=== PATIENT | male | born 1955 | race Two or more races ===

== ENCOUNTER 2025-10-16 09:30 | Day surgery (SDC) | payer MEDICARE, SELFPAY ==
--- NOTE | 2025-10-15 07:00 | EKG_ITS ---
[facility] Test Date: 2025-10-15 Pat Name: RABIA TAYLOR Department: Room: - Gender: Male General Operations Manager: YAHIR : 1955 Requested By: Anoop Seaman Order Number: [id number] Reading MD: Anoop Seaman Measurements Intervals [place] Rate: 53 P: 50 NE: 198 QRS: 66 QRSD: 93 T: 62 QT: 430 QTc: 407 Interpretive Statements SINUS BRADYCARDIA No previous ECG available for comparison /store/S0/[id number].pdf
[2025-10-15 09:42] VITALS: BMI 25.7
[2025-10-15 10:15] LABS: Collection Type, Urine Clean Catch; Squamous Epithelial Cell,Urine 0 /hpf (0-5); WBC,Urine 0 /hpf (0-5)
[2025-10-15 10:51] LABS: Bilirubin,Urine Negative (Negative); Blood,Urine Trace (Negative); Clarity,Urine Clear (Clear/Hazy); Glucose, Urine Trace (Negative); Ketones,Urine Negative (Negative); Leukocyte Esterase,Urine Negative (Negative); Nitrite,Urine Negative (Negative); PH,Urine 7.0 (5.0-7.0); Protein,Urine Negative (Neg - Trace); RBC,Urine 3 /hpf (0-3); Specific Gravity,Urine 1.014 (1.001-1.035); Urobilinogen,Urine Negative mg/dL (0.0-1.0)
[2025-10-15 10:53] LABS: Color,Urine Lt-Yellow (Lt Yel-Yel)
[2025-10-15 10:58] LABS: Alanine Aminotransferase 68 U/L (10-49); Albumin, Serum 4.9 gm/dL (3.4-4.8); Albumin/Globulin Ratio 2.1 (1.2-2.2); Alkaline Phosphatase 63 U/L (46-116); Anion Gap 8 (7-16); Aspartate Amino Transferase 38 U/L (0-34); BUN/Creatinine Ratio 11 Ratio (12-20); Bilirubin,Total 0.5 mg/dL (0.3-1.2); Blood Urea Nitrogen 14 mg/dL (9-23); Calcium 9.6 mg/dL (8.3-10.6); Calcium (Corrected) 9.6 mg/dL (8.5-10.1); Carbon Dioxide 24.5 mMol/L (20.0-31.0); Chloride 110 mMol/L (98-107); Creatinine (Component) 1.3 mg/dL (0.6-1.3); Estimated Creatinine Clearance 46.0 mL/min (>60); Globulin 2.3 gm/dL (2.3-3.5); Glucose 95 mg/dL (74-106); Osmolality,Calculated 283 (275-295); Potassium 4.4 mMol/L (3.4-5.1); Sodium 142 mMol/L (136-145); Total Protein 7.2 gm/dL (5.7-8.2); eGFR 59 See Note
[2025-10-15 11:05] LABS: Basophils # (Auto) 0.1 Thou/mm3 (0.0-0.2); Basophils % (Auto) 1 % (0-2.5); Eosinophils # (Auto) 0.1 Thou/mm3 (0.0-0.5); Eosinophils % (Auto) 1 % (0-10); Hematocrit 41.5 % (41.0-53.0); Hemoglobin 14.3 g/dL (13.5-16.0); Immature Granulocytes Auto 0.03 Thou/mm3 (0.00-0.00); Lymphocytes # (Auto) 1.9 Thou/mm3 (1.0-4.8); Lymphocytes % (Auto) 16 % (10-50); Mean Corpuscular HGB Conc 34.5 g/dl (31.0-37.0); Mean Corpuscular Hemoglobin 33.9 pg (25.0-35.0); Mean Corpuscular Volume 98 fL (80-100); Monocytes # (Auto) 0.9 Thou/mm3 (0.0-0.8); Monocytes % (Auto) 7 % (0-12); Neutrophils # (Auto) 8.8 Thou/mm3 (1.8-7.7); Neutrophils % (Auto) 74 % (37-80); Nucleated Red Blood Cell # 0.00 Thou/mm3 (0.00-0.00); Nucleated Red Blood Cell % 0 /100 WBC (0); Platelet Count 311 Thou/mm3 (140-440); RDW Standard Deviation 45.2 fL (35.1-43.9); Red Blood Count 4.22 Miln/mm3 (4.50-5.90); White Blood Count 11.9 Thou/mm3 (3.8-10.6)
--- NOTE | 2025-10-15 12:43 | SUR.PREOP ---
Pt stated saw [facility] 6 yrs ago, he stated had his arteries cleaned and not sure if he has a coronary stent, pt stated his primary Dr has referred him to [facility] but he has not been able to go. Pt saw [facility] last in [place] that's where he used to live.
--- NOTE | 2025-10-15 12:46 | SUR.PREOP ---
Cardiac history reviewed with Dr Erickson.
--- NOTE | 2025-10-15 13:47 | ESHP_ITS ---
RE: RABIA TAYLOR : 1955 DATE OF ADMISSION: 10/15/2025 HISTORY OF PRESENT ILLNESS: A 70 [id number] who was referred to me with history of nocturia x4. He is Mosoth[place] speaking. Fair urinary stream. No blood in the urine. No burning in the urine. Patient serum creatinine is 1.05. His PSA is 24.6. PAST SURGICAL HISTORY: None. SOCIAL HISTORY: Patient has 4 children. ALLERGIES: NONE KNOWN. PAST MEDICAL HISTORY: No history of diabetes mellitus. He has a history of hypertension. MEDICATIONS: He takes: 1. Aspirin. 2. Statin medication. 3. Losartan. 4. Coreg. 5. Zetia. PHYSICAL EXAMINATION: Clinical examination reveals: HEENT: Normal. NECK: Supple. LUNGS: Clear. HEART: Sounds are normal. ABDOMEN: Soft without any organomegaly, no guarding, no rigidity. EXTREMITIES: Normal. GENITOURINARY: Phallus is normal, testes are down in scrotum. RECTAL: Examination reveals moderately enlarged prostate with mild firmness in the right prostatic lobe. IMPRESSION: 1. Prostatism. 2. Prostatic obstruction. 3. Elevated PSA. PLAN: Cystoscopy and transrectal prostatic ultrasound with ultrasound-guided prostatic needle biopsy. Planned procedure, risks and complications have been discussed with the patient. Patient has understood them and agreed to proceed. DT: 13:23:18 TT: 13:46:00 Ref: [id number] - TID: [id number]
[2025-10-16 06:00] VITALS: BP 193/81; PULSE 57; RESP 19; TEMP 36.1; O2SAT 98; BMI 25.8
--- NOTE | 2025-10-16 11:02 | PC.NURSE ---
Dr. Erickson made aware of high BP. No new orders received.
--- NOTE | 2025-10-16 11:30 | XR_ITS ---
EXAMINATION: Transrectal prostate sonography Date and time: October 16, 2025, 1151 hours INDICATIONS: Sonographic prostate images for prostate biopsies by physician today TECHNIQUE AND FINDINGS: Transrectal prostate sonographic images. Prostate volume 31.16 cc IMPRESSION: Transrectal prostate sonography for prostate biopsies by physician today
[2025-10-16 12:44] VITALS: BP 153/57; PULSE 53; RESP 18; TEMP 36.3; O2SAT 100
--- NOTE | 2025-10-16 12:44 | SUR.PHASEII ---
1244: Pt. AAOx4, vitals stable, breathing unlabored, no complaint of pain or nausea, no dressing in place, no active bleed noted, report received from MD Erickson and Fidel DELGADO.
[2025-10-16 12:49] VITALS: BP 127/58; PULSE 52; RESP 13; TEMP 36.5; O2SAT 100
[2025-10-16 12:54] VITALS: BP 154/76; PULSE 55; RESP 14; TEMP 36.4; O2SAT 100
[2025-10-16 12:59] VITALS: BP 147/63; PULSE 65; RESP 14; TEMP 36.4; O2SAT 100
[2025-10-16 13:14] VITALS: BP 169/76; PULSE 66; RESP 16; TEMP 36.5; O2SAT 98
--- NOTE | 2025-10-16 13:20 | SUR.PHASEII ---
1320: Pt. AAOx4, vitals stable, breathing unlabored, no complaint of pain or nausea, no dressing in place, pt. able to void hematuria, pt. tolerated sips of water well, pt. ambulated to wheelchair with steady gait and no assist, no complications. Gave discharge instructions to the pt. and his ride using a manager disaster recovery, both verbalized understanding and had no further questions. Pt. left with all personal belongings.
--- NOTE | 2025-10-16 23:41 | ESOP_ITS ---
RE: RABIA TAYLOR : 1955 PREOPERATIVE DIAGNOSES: Prostatism, prostatic obstruction, elevated PSA of 24.6. POSTOPERATIVE DIAGNOSES: Prostatism, prostatic obstruction, elevated PSA of 24.6. PROCEDURES PERFORMED: Cystoscopy and transrectal prostatic ultrasound with ultrasound-guided prostatic needle biopsy. ANESTHESIA: Monitored anesthesia, by Dr. Erickson. INDICATIONS: Patient is a 70-year-old male, Irish speaking, with prostatism, elevated PSA of 24.6. He has nocturia and slowing urinary stream. Rectally, he has a moderately-sized prostate with some firmness on both prostatic lobes. Patient is now scheduled to have cystoscopy and transrectal prostatic ultrasound with ultrasound-guided prostatic needle biopsy. Planned procedure, risks, and complications have been discussed with the patient. Patient has understood them and agreed to proceed. DESCRIPTION OF PROCEDURE: After the patient was brought to the operating table under adequate monitored anesthesia in dorsal lithotomy position, parts were prepped and draped in the usual fashion. Cystoscopy was then carried out, which revealed adequate urethral meatus, normal-appearing urethra, bilobed, moderate-size prostate. Residual urine was 2 ounce, yellow and clear, and was sent for culture and sensitivity examination. There were no intravesical stones or tumors. Ureteral orifices were found to be normal in position and appearance. The scope was withdrawn. Patient was then turned in left lateral position. Transrectal prostatic ultrasound was then carried out. Biopsies were obtained from both lobes using ultrasound guidance. Patient tolerated the entire procedure well and left the room in good condition. DT: 12:47:37 TT: 23:39:00 Ref: [id number] - TID: [id number]
== END 2025-10-16 13:20 | disposition home or self-care (01) ==
PROVIDERS: Anesthesiology; PCP Internal Medicine; Referring Provider Surgery; Visit Provider Surgery
PROC: (CPT 55700; principal; 2025-10-16 11:45)
PROC: 0TJB8ZZ Inspection of Bladder, Via Natural or Artificial Opening Endoscopic (ICD-10-PCS; CPT 52000; 2025-10-16 11:45)
DX: C61 Malignant neoplasm of prostate (principal); Z01.810 Encounter for preprocedural cardiovascular examination
CPT/HCPCS: 52000; 55700; 36415; 76942; 80053; 81001; 85025; 87086; 93005; A4217; A4649; J0694; J2704; J3010; J3490